=== PATIENT | male | born 1945 | race African-American/Black ===

== ENCOUNTER 2018-12-25 10:41 | Emergency (ER) | payer OTHER ==
[2018-12-25 11:41] VITALS: BP 124/83; PULSE 78; TEMP 98.5; BMI 34.0
[2018-12-25] MEDS ORDERED: SODIUM CHLORIDE 0.9% 500 ML INFUS.BAG IV ONE (12:28)
--- NOTE | 2018-12-25 12:36 | PDOC ---
History of Present Illness - General Chief Complaint: Syncope/Near Syncope Stated Complaint: SYNCOPE,FALL Time Seen by Provider: 12/25/18 12:03 - History of Present Illness Initial Comments: Mr. Washington is a 73M with PMH significant for HTN, HLD, fatty liver disease, prostate CA, GERD, presenting today s/p syncopal episode 3 hours ago. 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 At the GI doctor's office today, he was sitting in the waiting room when his name was called. He stood up and had the syncopal episode. Reports that he felt light headed prior to passing out. States that he does not believe he hit his head. Fell on his left side and complaining of mild left rib tenderness. Denies heart palpitations. Denies nausea/vomiting/diarrhea/hematemesis/ hematochezia/melena. Denies chest pain or shortness of breath. Denies fever, cough. Denies abdominal pain or urinary symptoms. Denies headache, denies neck pain, denies back pain. PMH: HTN, HLD, prostate CA SurgHx: prostate surgery, cervical dissectomy Meds: losartan, carvedilol GI: Dr. Rosales Past History - Past Medical History Allergies/Adverse Reactions: Allergies Allergy/AdvReac Type Severity Reaction Status Date / Time No Known Allergies Allergy Verified 12/25/18 12:38 Home Medications: Ambulatory Orders Carvedilol 12.5 mg PO DAILY 12/25/18 Clonidine HCl 0.3 mg PO DAILY 12/25/18 Colchicine [Colcrys] 0.6 mg PO DAILY 12/25/18 Famotidine [Pepcid] 40 mg PO DAILY 12/25/18 Losartan/Hydrochlorothiazide [Hyzaar 100-25 Tablet] 1 each PO DAILY 12/25/18 COPD: No GI Disorders: Yes HTN: Yes Other medical history: gout - Suicide/Smoking/Psychosocial Hx Smoking History: Never smoked Hx Alcohol Use: Yes (socially) Drug/Substance Use Hx: No Review of Systems - Review of Systems Comments:: ROS GENERAL/CONSTITUTIONAL: No fever or chills. No weakness._ HEAD, EYES, EARS, NOSE AND THROAT: No change in vision. No ear pain or discharge. No sore throat._ CARDIOVASCULAR: No chest pain or shortness of breath. RESPIRATORY: Denies cough, hemoptysis_ GASTROINTESTINAL: No nausea, vomiting, diarrhea or constipation._ GENITOURINARY: No dysuria, frequency, or change in urination._ MUSCULOSKELETAL: No joint or muscle swelling or pain. No neck or back pain. Reports mild chest wall tenderness. SKIN: No rash_ NEUROLOGIC: No headache, vertigo, or change in strength/sensation._ ENDOCRINE: No increased thirst. No abnormal weight change_ HEMATOLOGIC/LYMPHATIC: No anemia, easy bleeding, or history of blood clots._ ALLERGIC/IMMUNOLOGIC: No hives or skin allergy._ *Physical Exam - Vital Signs Last Vital Signs Temp Pulse Resp BP Pulse Ox 98.5 F 78 19 124/83 100 12/25/18 10:45 12/25/18 10:45 12/25/18 10:45 12/25/18 10:45 12/25/18 10:45 - Physical Exam Comments: PE GENERAL: Awake, alert, and oriented to person/place/time, in no acute distress. HEAD: No signs of trauma, normocephalic, atraumatic. EYES: PERRLA, EOMI, sclera anicteric, conjunctiva clear. ENT: Hearing grossly normal, nares patent, oropharynx clear without exudates. No uvular deviation. Moist mucosa. NECK: Normal ROM, supple, no lymphadenopathy, JVD, or masses. No c-spine tenderness. LUNGS: No distress, speaks in full sentences, clear to auscultation bilaterally _ HEART: Regular rate and rhythm, normal S1 and S2, no murmurs appreciated, peripheral pulses normal and equal bilaterally. CHEST: Tender to palpation over left 9th rib. No bruising. ABDOMEN: Soft, nontender, normoactive bowel sounds. No guarding, no rebound. No masses EXTREMITIES: Normal inspection, Normal range of motion, no edema. No clubbing or cyanosis. NEUROLOGICAL: Cranial nerves II through XII grossly intact. Normal speech, normal gait, no focal sensorimotor deficits. Cerebellar testing intact. Strength and sensation 5/5 in upper/lower extremities. SKIN: Warm, Dry, normal turgor, no rashes or lesions noted. ED Treatment Course - LABORATORY CBC & Chemistry Diagram: 12/25/18 12:56 12/25/18 12:56 - RADIOLOGY Radiology Studies Ordered: Category Date Time Status CHEST PA & LAT [RAD] Stat Radiology 12/25/18 12:27 Ordered Medical Decision Making - Medical Decision Making 73M with hx of HTN, HLD, presenting with syncopal episode. Did not eat or drink after midnight for endoscopy prep. Works the director of employee development. DDx includes vasovagal syncope vs less likely cardiac cause of syncope. SF Syncope rule low risk. Plan to obtain EKG, CXR, CBC, CMP, trop, UA. 12/25/18 13:04 CXR and XR left ribs show no rib fracture and no acute intrathoracic process. 12/25/18 13:24 EKG shows NSR 78 bpm, left anterior fascicular block, no ST elevation/depression , QTc 430 ms. 12/25/18 15:[address] head shows no acute hemorrhage and no acute intracranial process. No masses, no midline shift. Labs reviewed. BUN and Cr elevated. Patient does not have prior labs in this hospital to trend. Recommend admission for IV fluids. Patient reassessed after IV fluids. Able to ambulate on his own to the bathroom without dizziness or syncope. After extensive discussion with the patient about his need for IV fluids, and the risks of him leaving including kidney injury and repeat syncopal episodes, patient remains steadfast in his decision to leave. All questions answered about his labs and his condition. The patient has requested to leave the ED against medical advice. The patient reason(s) for leaving include, but are not limited to, the following: would like to go home, get some sleep, and follow up with his own PCP. I believe this patient is of sound mind and competent to refuse medical care. The patient is responding and asking questions appropriately. The patient is oriented to person , place and time. The patient is not psychotic, delusional, suicidal, homicidal or hallucinating. The patient demonstrates a normal mental capacity to make decisions regarding their healthcare. The patient is clinically sober and does not appear to be under the influence of any illicit drugs at this time. The patient has been advised of the risks, in layman terms, of leaving AMA which include, but are not limited to , coma, permanent disability, loss of current lifestyle, delay in diagnosis. Alternatives have been offered - the patient remains steadfast in their wish to leave. The patient has been advised that should they change their mind they are welcome to return to this hospital, or any other, at any time. The patient understands that in no way does an AMA discharge mean that I do not want them to have the best medical care available. To this end, I have provided appropriate prescriptions, referrals, and discharge instructions. The patient did sign AMA paperwork. The above discussion was witnessed by another member of staff. *DC/Admit/Observation/Transfer Diagnosis at time of Disposition: Syncope Qualifiers: Syncope type: unspecified Qualified Code(s): R55 - Syncope and collapse - Discharge Dispostion Disposition: AGAINST MEDICAL ADVICE - Referrals Referrals: Boo Breen [Primary Care Provider] - - Patient Instructions Printed Discharge Instructions: DI for Syncope in Adults (Fainting) Additional Instructions: Please take your colchine as prescribed by your physician. Do not take this every day until you have discussed this with the physician who prescribed this medicine. Please make an appointment with your primary care physician and urologist as soon as possible to discuss your the elevated BUN and Cr in your lab results. If you experience any new, worsening, or concerning symptoms, including headache , dizziness, fainting, chest pain, shortness of breath, blood in the urine, or any other concerns, please return to the emergency room immediately. - Post Discharge Activity
[2018-12-25 13:09] LABS: BASO % 0.4 % (0-2.0); EOS % 1.1 % (0-4.5); HEMATOCRIT 38.6 % (35.4-49); HEMOGLOBIN 13.2 GM/dL (11.7-16.9); LYMPH % 28.5 % (8-40); MCHC 34.2 g/dl (32.0-35.9); MEAN PLT VOLUME 10.1 fl (7.5-11.1); MONO % 5.3 % (3.8-10.2); NEUT % 64.7 % (42.8-82.8); PLATELET COUNT 149 K/MM3 (134-434); RBC 4.88 M/mm3 (4.00-5.60); RDW 14.9 % (11.9-15.9); WHITE BLOOD COUNT 7.8 K/mm3 (4.0-10.0)
[2018-12-25 13:15] LABS: PH,URINE 6.5 (5.0-8.0); URINE APPEARANCE CLEAR; URINE BILIRUBIN NEGATIVE (NEGATIVE); URINE COLOR YELLOW; URINE GLUCOSE (UA) NEGATIVE (NEGATIVE); URINE KETONE NEGATIVE (NEGATIVE); URINE LEUK ESTERASE NEGATIVE (NEGATIVE); URINE NITRITE NEGATIVE (NEGATIVE); URINE PROTEIN NEGATIVE (NEGATIVE)
[2018-12-25 13:54] LABS: ALBUMIN 3.8 g/dl (3.4-5.0); BILIRUBIN,TOTAL 0.4 mg/dL (0.2-1); BLOOD UREA NITROGEN 31.4 mg/dL (7-18); CALCIUM 9.9 mg/dL (8.5-10.1); POTASSIUM 3.6 mmol/L (3.5-5.1); TOT PROT 7.5 g/dl (6.4-8.2)
--- NOTE | 2018-12-25 14:16 | PDOC ---
Documentation entered by Lydia Sands SCRIBE, acting as scribe for Sumeet Stewart MD. Sumeet Stewart MD: This documentation has been prepared by the luciaibe, Lydia Sands SCRIBE, under my direction and personally reviewed by me in its entirety. I confirm that the documentation accurately reflects all work, treatment, procedures, and medical decision making performed by me. Attending Attestation - Resident Resident Name: ScottCrow - ED Attending Attestation I have performed the following: I have examined & evaluated the patient, The case was reviewed & discussed with the resident, I agree w/resident's findings & plan, Exceptions are as noted - HPI HPI: 12/25/18 14:08 The patient is a 73-year-old male, with a past medical history of HTN, HLD, GERD , fatty liver disease, and prostate CA, who presents to the ED s/p syncopal episode that occurred 3 hours prior to arrival. 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 The patient was at the GI doctors office today when he experienced the episode. He states that his name was called, he stood up and felt lightheaded, and passed out. The patient does not know if he hit his head and is now complaining of LT rib tenderness. The patient denies any fevers, chills, nausea, vomiting, diarrhea, or abdominal pain. Denies any chest pain, palpitations or shortness of breath. Denies any changes in strength or sensation. Allergies: NKA PCP: Dr. Boo Breen - Physicial Exam PE: 12/25/18 14:09 GENERAL: Awake, alert, and fully oriented, in no acute distress. HEAD: No signs of trauma EYES: PERRLA, EOMI, sclera anicteric, conjunctiva clear ENT: Auricles normal inspection, hearing grossly normal, nares patent, oropharynx clear without exudates. Moist mucosa NECK: Nontender, no stepoffs, Normal ROM, supple, no lymphadenopathy, JVD, or masses LUNGS: Breath sounds equal, clear to auscultation bilaterally. No wheezes, and no crackles HEART: Regular rate and rhythm, normal S1 and S2, no murmurs, rubs or gallops ABDOMEN: Soft, nontender, normoactive bowel sounds. No guarding, no rebound. No masses EXTREMITIES: Normal range of motion, no edema. No clubbing or cyanosis. No cords, erythema, or tenderness NEUROLOGICAL: Cranial nerves II through XII intact. 5/5 strength and sensation in all extremities, Normal speech, normal gait, normal cerebellar function SKIN: Warm, Dry, normal turgor, no rashes or lesions noted. - Medical Decision Making 12/25/18 14:18 73 M with syncopal episode. Suspect orthostatic syncope in the setting of dehydration due to GI prep. Pt with stable vitals in ED. EKG without evidence of arrhythmia. - Labs, trop - CT head - CXR to r/o rib fx - Orthostatics - IV hydration 12/25/18 15:00 CT and XR negative Labs notable for elevated Cr 2.0 Suspect ARSENIO 2/2 dehydration Will admit for IV hydration and syncope work up 12/25/18 15:30 Pt refusing admission at this time I explained results to pt, including his kidney injury which may be due to dehydration. I also explained that without IV hydration and re-evaluation of his labs, he may suffer worsening kidney damage and may also have another syncopal episode that could result in serious injury or . Pt expresses understanding and still refuses admission, stating that he does not get good rest in hospitals and will f/u with his PMD tomorrow instead. The patient is clinically sober, free from distracting injury, appears to have intact insight and judgment and reason and in my opinion has the capacity to make decisions. The patient presented with syncope and elevated creatinine. I have explained that I am concerned that this may represent significant dehydration; they have verbalized an understanding of my concerns. I have discussed the need for renal and cardiology consultation and admission to the hospital to get more information about potential causes of the patients syncope and kidney injury. I have told the patient that if they leave and have chest pain or shortness of breath or another syncopal event, they could get much worse, could become critically ill, and could possibly become disabled or . I have asked them to stay in the hospital for monitoring. I have discussed these concerns with the patients daughter who is at the bedside and she is unable to convince them to stay for further evaluation. He is unwilling to stay overnight for monitoring. He is refusing any further care and is leaving against medical advice. I am unable to convince the patient to stay, I have asked them to return as soon as possible to complete their evaluation. I have answered all their questions.
--- NOTE | 2018-12-25 15:23 | EKG ---
Test Reason : Blood Pressure : / mmHG Vent. Rate : 078 BPM Atrial Rate : 078 BPM P-R Int : 178 ms QRS Dur : 094 ms QT Int : 378 ms P-R-T Axes : 040 -47 -12 degrees QTc Int : 430 ms NORMAL SINUS RHYTHM LEFT ANTERIOR FASCICULAR BLOCK MODERATE VOLTAGE CRITERIA FOR LVH, MAY BE NORMAL VARIANT NONSPECIFIC T WAVE ABNORMALITY ABNORMAL ECG NO PREVIOUS ECGS AVAILABLE Confirmed by MORIAH VARELA, OSORIO ([id number]) on 12/25/2018 3:22:55 PM Referred By: Confirmed By:OSORIO MAJOR MD
== END 2018-12-25 17:47 | disposition left against medical advice (07) ==
LOC: JER 10:41
PROC: 3E0337Z Introduction of Electrolytic and Water Balance Substance into Peripheral Vein, Percutaneous Approach (ICD-10-PCS; principal; 2018-12-25)
DX: R55 Syncope and collapse (principal); I10 Essential (primary) hypertension; K21.9 Gastro-esophageal reflux disease without esophagitis; M10.9 Gout, unspecified
CPT/HCPCS: 36415; 70450-TC; 71046-TC-FY; 71101-TC-LT-FY; 80053; 81003; 82550; 82553; 84484; 85025; 93005; 93010; 99284-25